=== PATIENT | male | born 1985 | race African-American/Black ===

== ENCOUNTER 2023-05-22 23:53 | Emergency (ER) | payer MEDICAID, OTHER ==
[~2023-05-22] VITALS: Ht 180.3 cm; Wt 107.0 kg
[~2023-05-22 23:53] MED LIST: ALBUTEROL; IBUP-779
[2023-05-23 00:15] VITALS: O2SAT 99
[2023-05-23] MEDS ORDERED: KETOROLAC 30MG/ML VIAL IM ONE (01:15)
[2023-05-23] MEDS ORDERED: NAPR-1176 MT (02:07)
[2023-05-23] MEDS ORDERED: CYCL10TA21 MT (02:07)
[2023-05-23 02:09] VITALS: BP 143/87; PULSE 79; RESP 15
== END 2023-05-23 02:18 | disposition home or self-care (01) ==
LOC: ER 05-23 00:52
DX: M79.604 Pain in right leg (principal); J45.909 Unspecified asthma, uncomplicated
CPT/HCPCS: 73610; 96372; 99283; J1885; Z7610 ×2